=== PATIENT | female | born 1980 | race African-American/Black ===

== ENCOUNTER 2021-03-24 10:12 | Inpatient (IN) | payer SELFPAY ==
[2021-03-24 13:45] VITALS: BMI 46.4
[2021-03-24] MEDS ORDERED: NICOTINE 10 MG CARTRIDGE (INHALER) IH PRN (14:33)
[2021-03-24] MEDS ORDERED: BISMUTH SUBSALICYLATE 524 MG/30 ML PO PRN (14:33)
[2021-03-24] MEDS ORDERED: ACETAMINOPHEN 325 MG TABLET (FP) PO PRN ×2 (14:33)
[2021-03-24] MEDS ORDERED: MENTHOL/PHENOL 1 EACH UD MM PRN (14:33)
[2021-03-24] MEDS ORDERED: MAG HYDROX/AL HYDROX/SIMETH 30 ML UNIT-DOSE CUP PO PRN (14:33)
[2021-03-24] MEDS ORDERED: ONDANSETRON *ODT* 4 MG TABLET SL PRN (14:33)
[2021-03-24] MEDS ORDERED: IBUPROFEN 400 MG TABLET (FP) PO PRN (14:33)
[2021-03-24] MEDS ORDERED: MAGNESIUM HYDROX 2400MG/30ML ORAL SUSPENSION 30 ML CUP PO PRN (14:33)
[2021-03-24] MEDS ORDERED: MAGNESIUM CITRATE 300 ML BOTTLE PO PRN (14:33)
[2021-03-24] MEDS ORDERED: ONDANSETRON *ODT* 4 MG TABLET ONE (15:26)
[2021-03-24] MEDS ORDERED: diazePAM 5 MG TABLET ONE (16:21)
[2021-03-24] MEDS: diazePAM 5 MG TABLET PO SCH ×2 (16:25→21:59)
[2021-03-24 16:44] LABS: HEMATOCRIT 40.4 % (32.4-45.2); HEMOGLOBIN 13.3 GM/dL (10.7-15.3); MCH 30.9 pg (25.7-33.7); MCHC 32.9 g/dl (32.0-36.0); MEAN CELL VOLUME 93.9 fl (80-96); MEAN PLT VOLUME 9.9 fl (7.5-11.1); PLATELET COUNT 105 10^3/uL (134-434); WHITE BLOOD COUNT 3.7 K/mm3 (4.0-10.0)
[2021-03-24 16:56] LABS: CALCIUM 9.2 mg/dL (8.5-10.1)
[2021-03-24 16:58] LABS: ALBUMIN 3.7 g/dl (3.4-5.0); BLOOD UREA NITROGEN 11.4 mg/dL (7-18)
[2021-03-24 17:00] LABS: CREATININE 0.8 mg/dL (0.55-1.3)
[2021-03-24 17:02] LABS: BILIRUBIN,TOTAL 0.7 mg/dL (0.2-1); TOT PROT 7.2 g/dl (6.4-8.2)
[2021-03-24] MEDS: diazePAM 5 MG TABLET PO PRN ×2 (17:46→21:57)
[2021-03-24] MEDS: hydrOXYzine PAMOATE 25 MG CAPSULE (FP) PO SCH ×2 (17:46→22:31)
[2021-03-24] MEDS: NICOTINE 14 MG/24 HOURS TOPICAL PATCH TD SCH (17:55)
[2021-03-24] MEDS: PRENATAL VITAMINS W/ FOLIC ACID TABLET (FP) PO SCH (19:15)
[2021-03-24] MEDS: THIAMINE HCL 100 MG TABLET (FP) PO SCH (21:57)
[2021-03-24] MEDS: MELATONIN 5 MG TABLETS PO SCH (22:00)
[2021-03-24] MEDS ORDERED: METOPROLOL TARTRATE 50 MG TABLET (FP) PO ONE (22:12)
[2021-03-25] MEDS: diazePAM 5 MG TABLET PO SCH ×4 (06:40→22:14)
[2021-03-25] MEDS: hydrOXYzine PAMOATE 25 MG CAPSULE (FP) PO SCH ×2 (06:41→10:17)
[2021-03-25] MEDS: PRENATAL VITAMINS W/ FOLIC ACID TABLET (FP) PO SCH (10:17)
[2021-03-25] MEDS: NICOTINE 14 MG/24 HOURS TOPICAL PATCH TD SCH (11:11)
[2021-03-25] MEDS ORDERED: amLODIPine BESYLATE 10 MG TABLET (FP) PO ONE (13:15)
[2021-03-25] MEDS ORDERED: HYDROCHLOROTHIAZIDE 25 MG TABLET (FP) PO ONE (13:15)
[2021-03-25] MEDS ORDERED: METOPROLOL TARTRATE 25 MG TABLET (FP) PO ONE (13:15)
[2021-03-25] MEDS: MELATONIN 5 MG TABLETS PO SCH (22:14)
[2021-03-25] MEDS: THIAMINE HCL 100 MG TABLET (FP) PO SCH (22:14)
[2021-03-26] MEDS: diazePAM 5 MG TABLET PO SCH ×3 (06:51→22:14)
[2021-03-26] MEDS: PRENATAL VITAMINS W/ FOLIC ACID TABLET (FP) PO SCH (10:40)
[2021-03-26] MEDS: NICOTINE 14 MG/24 HOURS TOPICAL PATCH TD SCH (11:36)
[2021-03-26] MEDS ORDERED: amLODIPine BESYLATE 10 MG TABLET (FP) PO ONE (15:37)
[2021-03-26] MEDS: diazePAM 5 MG TABLET PO PRN (17:22)
[2021-03-26] MEDS: THIAMINE HCL 100 MG TABLET (FP) PO SCH (22:14)
[2021-03-26] MEDS: MELATONIN 5 MG TABLETS PO SCH (22:14)
[2021-03-26] MEDS: METHOCARBAMOL 500 MG TABLET PO PRN (22:27)
[2021-03-26] MEDS: hydrOXYzine PAMOATE 25 MG CAPSULE (FP) PO PRN (22:27)
[2021-03-27] MEDS: diazePAM 5 MG TABLET PO SCH ×2 (05:56→17:59)
[2021-03-27] MEDS: PRENATAL VITAMINS W/ FOLIC ACID TABLET (FP) PO SCH (10:15)
[2021-03-27] MEDS: NICOTINE 14 MG/24 HOURS TOPICAL PATCH TD SCH (10:15)
[2021-03-27] MEDS: hydrOXYzine PAMOATE 25 MG CAPSULE (FP) PO PRN ×2 (15:15→22:03)
[2021-03-27] MEDS: MELATONIN 5 MG TABLETS PO SCH (22:04)
[2021-03-27] MEDS: METHOCARBAMOL 500 MG TABLET PO PRN (22:04)
[2021-03-27] MEDS: THIAMINE HCL 100 MG TABLET (FP) PO SCH (22:04)
[2021-03-28] MEDS ORDERED: diazePAM 5 MG TABLET PO ONE (06:00)
[2021-03-28 09:55] VITALS: BP 141/103; PULSE 119; TEMP 98.3
== END 2021-03-28 09:40 | disposition home or self-care (01) | DRG 775 ==
LOC: YASAS 10:12 → Y3N 15:20
PROVIDERS: ADMIT Allergy & Immunology; ATTEND Allergy & Immunology
PROC: HZ2ZZZZ Detoxification Services for Substance Abuse Treatment (ICD-10-PCS; principal; 2021-03-24)
DX: F10.230 Alcohol dependence with withdrawal, uncomplicated (principal); F17.210 Nicotine dependence, cigarettes, uncomplicated; I10 Essential (primary) hypertension; R73.9 Hyperglycemia, unspecified; R74.8 Abnormal levels of other serum enzymes; E66.01 Morbid (severe) obesity due to excess calories; Z68.42 Body mass index [BMI] 45.0-49.9, adult; Z98.890 Other specified postprocedural states; Z87.42 Personal history of other diseases of the female genital tract
CPT/HCPCS: 36415; 80053; 81025; 85027; 86780; 93005; 93010; C9803; Q0162; U0003; U0005